=== PATIENT | female | born 1995 | race Caucasian/White ===

== ENCOUNTER 2020-05-17 15:11 | Outpatient (CLI) | payer OTHER, SELFPAY ==
--- NOTE | ~2020-05-17 | CT_ITS ---
EXAMINATION: CT abdomen pelvis w con EXAM DATE: 05/17/2020 15:55 INDICATION: Abdominal pain. Constipation. Symptoms for a few months. TECHNIQUE: Spiral CT of the abdomen and pelvis was performed following intravenous injection of 100 m L Omnipaque 350. Axial, coronal and sagittal images were reviewed. The dose-length product (DLP) fo r this examination was 227.37 mGy-cm. The exposure was tailored according to patient size (auto mA e xposure control), and iterative reconstruction (ASIR) was used as additional dose reduction technique . There is no prior study for comparison. FINDINGS: The liver, spleen, adrenal glands and pancreas are unremarkable. Gallbladder is unremarkab le. No biliary obstruction. Portal and splenic veins are patent. Kidneys enhance symmetrically. T here is no hydronephrosis. The uterus is retroverted with IUD in expected position. There is also a collapsed appearing peripher ally enhancing left ovarian cyst most likely recently ruptured physiologic or hemorrhagic cyst. The b ladder is unremarkable. There is no retroperitoneal or pelvic lymphadenopathy. The appendix is normal. The stomach and small bowel are unremarkable. There is moderate to large am ount of colonic stool. No free intraperitoneal gas. The heart is normal in size. There are no pe ricardial or pleural effusions. The lung bases are unremarkable. The bones are unremarkable. IMPRESSION: 1. Recently ruptured left ovarian cyst. 2. Moderate to large amount of colonic stool. 3. No acute findings. Reviewed, dictated and finalized at location A.
== END 2020-05-17 15:12 | disposition home or self-care (01) ==
LOC: ANHIMG 15:18
PROVIDERS: PCP Family Medicine Sports Medicine; Visit Provider Family Medicine Sports Medicine
DX: R10.9 Unspecified abdominal pain (principal); N83.202 Unspecified ovarian cyst, left side
CPT/HCPCS: 74177; Q9967

== ENCOUNTER → 2022-06-30 07:22 | Outpatient (CLI) | payer OTHER, SELFPAY ==
--- NOTE | ~2022-06-30 | MR_ITS ---
EXAMINATION: MR ankle RT wo con DATE: 06/30/2022 07:57 INDICATION: Posterior tibial tendinitis of the right foot TECHNIQUE: Magnetic resonance imaging (MRI) of the right ankle was performed without intravenous cont rast. Sequences included sagittal, coronal, and axial proton-density weighted fast spin echo without and with fat saturation. COMPARISON: None. FINDINGS: Medial ankle ligaments: Deep and superficial deltoid ligaments as well as the spring ligament are normal. Lateral ankle ligaments: The anterior and posterior inferior tibiofibular ligaments are normal. The anterior talofibular, calc aneofibular and posterior talofibular ligaments are normal. Tendons: Achilles tendon is normal. Peroneal tenosynovitis with increased fluid in the tendon sheath, predomin antly distally along the normal aspect the hernias longus tendon. The peroneus brevis tendon is also normal. The tibialis anterior and extensor hallucis longus and extensor digitorum longus tendons are normal. The flexor digitorum longus and flexor hallucis longus tendons are normal. There is increased fluid consistent with tenosynovitis along the tibialis posterior tendon. There is mild tendinopathy/ enthesopathy without tear at its navicular insertion. Plantar fascia: Plantar aponeurosis is normal. Bones/other: Bone alignment is normal. Normal marrow signal throughout with no fracture or pathologic marrow repla cing process. Joint spaces are normal. Lisfranc ligament complex is normal. Fluid: Physiologic amount fluid in the joint spaces. Aside from the previously noted tenosynovitis are no ot her abnormal fluid collections. IMPRESSION: 1. Mild posterior tibial tenosynovitis with mild tendinopathy/enthesopathy without tear distally at i ts navicular insertion. 2. Mild peroneal tenosynovitis along the otherwise normal peroneus longus tendon. Reviewed, dictated and finalized at location A. IMPRESSION: 1. Mild posterior tibial tenosynovitis with mild tendinopathy/enthesopathy with out tear distally at its navicular insertion. 2. Mild peroneal tenosynovitis along the otherwise normal peroneus longus tendo n.
== END ==
PROVIDERS: PCP Orthopaedic Surgery; Visit Provider Podiatrist Foot & Ankle Surgery
DX: M76.821 Posterior tibial tendinitis, right leg (principal)
CPT/HCPCS: 73721

== ENCOUNTER 2023-10-09 12:24 | Outpatient (CLI) | payer OTHER, SELFPAY ==
--- NOTE | ~2023-10-09 | XR_ITS ---
XR sacroiliac joints min 3V Ordering provider: Ken Carrillo History: . MULTIPLE JOINT PAIN . Comparison: The FINDINGS: BONES: No acute fracture or dislocation. JOINTS: The bilateral sacroiliac joint spaces appear well maintained. No bony fusion of the sacroilia c joints or bony erosions. SOFT TISSUES: Unremarkable. IMPRESSION: NO ACUTE OSSEOUS ABNORMALITY. NORMAL SACROILIAC JOINTS. Reviewed, dictated and finalized at location A.
--- NOTE | ~2023-10-09 | XR_ITS ---
XR ankle LT 2V Ordering provider: Ken Carrillo History: . MULTIPLE JOINT PAIN . Comparison: None. FINDINGS: BONES: No acute fracture or dislocation. JOINT SPACES: The ankle mortise is normal. SOFT TISSUES: Normal. IMPRESSION: No acute osseous abnormality left ankle. Reviewed, dictated and finalized at location A.
--- NOTE | ~2023-10-09 | XR_ITS ---
XR hand LT 2V Ordering provider: Ken Carrillo History: . MULTIPLE JOINT PAIN . Comparison: None. FINDINGS: BONES: No acute fracture or dislocation. Sclerotic lesion seen in the distal phalanx of the fourth fi nger. Follow-up advised JOINT SPACES: Well maintained. SOFT TISSUES: Unremarkable. IMPRESSION: No acute osseous abnormality left hand. Sclerotic lesion in the distal phalanx of the fourth finger. Differential include periosteal reaction versus osteoma. Other differential is not included. Follow-up advised Reviewed, dictated and finalized at location A. IMPRESSION: No acute osseous abnormality left hand. Sclerotic lesion in the distal phalanx of the fourth finger. Differential inclu de periosteal reaction versus osteoma. Other differential is not included. Foll ow-up advised
--- NOTE | ~2023-10-09 | XR_ITS ---
XR ankle RT 2V Ordering provider: Ken Carrillo History: . MULTIPLE JOINT PAIN . Comparison: July 15, 2022 FINDINGS: BONES: No acute fracture or dislocation. JOINT SPACES: Normal. SOFT TISSUES: Normal. IMPRESSION: No acute osseous abnormality of the right ankle. Reviewed, dictated and finalized at location A.
--- NOTE | ~2023-10-09 | XR_ITS ---
XR hand RT 2V Ordering provider: Ken Carrillo History: . MULTIPLE JOINT PAIN . Comparison: None. FINDINGS: BONES: No acute fracture or dislocation. JOINT SPACES: Normal. SOFT TISSUES: Normal. IMPRESSION: No acute osseous abnormality right hand. Reviewed, dictated and finalized at location A.
== END 2023-10-09 12:25 ==
PROVIDERS: PCP Orthopaedic Surgery
DX: R53.81 Other malaise (principal); M89.9 Disorder of bone, unspecified
CPT/HCPCS: 72202; 73120; 73600